=== PATIENT | female | born 1975 | race Caucasian/White ===

== ENCOUNTER 2021-12-19 07:43 | Emergency (ER) | payer BC, SELFPAY ==
[2021-12-19 07:45] VITALS: BP 143/98; PULSE 97; RESP 18; TEMP 36.1; O2SAT 100; BMI 31.1
--- NOTE | 2021-12-19 08:04 | ED.VIS.BACK ---
HPI History of Present Illness Chief Complaint: Back Informant: patient Onset/Context/Timing Onset: Month(s) Context: Gradual Onset Timing: Intermittent Quality: Aching Location: Lumbar Current Severity: Mild Maximum Severity: Moderate Worsened by: improves with Movement Relieved by: Remaining Still and Medications Associated Symptoms Associated Symptoms: Negative for Numbness, Tingling, Radiation to Right Leg, Radiation to Left Leg, Fever, Abdominal Pain, Dysuria, Unable to Ambulate, Unable to Transfer, Urinary Retention, Urinary Incontinence, Constipation and Fecal Incontinence Narrative Narrative: 38-year-old female states that her hysterectomy in July she has had intermittent low back pain. Has been seen for this at the [facility] had x-rays of her back which showed arthritis. She is never had back surgery. She denies any fall or trauma. No bowel or bladder incontinence or retention. No fever. Is worse with movement bending and lifting and better still. She is on tramadol at home and Flexeril as needed. States she was doing better there initially getting an MRI and it hold off on that because she was improving. The last several days she has had more back pain usually worse in the morning and improves throughout the day. Prior similar symptoms: Yes Recent Illness/Hospitalization: No PFSH PFSH Home Medications metaxalone [Skelaxin] 800 mg PO TID PRN #20 tab 12/19/21 [Rx Last Taken Unknown] Allergy/AdvReac Type Severity Reaction Status Date / Time lisinopril Allergy Other Verified 12/19/21 07:44 sulfamethoxazole AdvReac Rash Verified 12/19/21 07:44 [From Bactrim] trimethoprim [From Bactrim] AdvReac Rash Verified 12/19/21 07:44 ROS ROS ED ROS Narrative Back.. Otherwise negative. Review of Systems ROS Unobtainable: Denies due to encephalopathy Constitutional Constitutional ED: Denies fever(s) Eyes Eyes: Denies change in vision ENT ENT ED: Denies ear pain Cardiovascular Cardiovascular: Denies chest pain Respiratory/Chest Respiratory/Chest: Denies dyspnea Gastrointestinal Gastrointestinal: Denies abdominal pain Genitourinary Genitourinary ED: Denies dysuria Musculoskeletal Musculoskeletal: Reports back pain; Denies myalgias Integumentary Denies rash Neurologic Neurologic: Denies headache(s) Psychiatric Psychiatric: Denies depression Endocrine Endocrinology: Denies polyuria Hematologic/Lymphatic Hematologic/Lymphatic: Denies easy bruising Allergic/Immunologic Allergic/Immunologic ED: Denies urticaria EXAM Physical Exam Narrative Exam Narrative: 46-year-old female. No acute distress. Vital signs are stable afebrile. H EENT exam unremarkable. Neck nontender. Lungs clear to auscultation bilaterally. Heart regular rhythm no murmur. Abdomen soft nontender. Moving all 4 extremities. 5 out of 5 corrections officer strength. Dorsi plantarflexion intact. Normal sensation. No cauda equina. No saddle anesthesia. Normal medial thigh sensation. Negative straight leg test bilaterally. Back exam spines nontender. She has paralumbar soft tissue tenderness. There is no ecchymosis or bruising. No redness or warmth. Neurologic exam is normal with no focal motor or sensory deficits. Const Vital Signs: 12/19/21 07:45 Temperature 97.0 F L Temperature Source Temporal Pulse Rate 97 Respiratory Rate 18 Blood Pressure 143/98 H Blood Pressure Mean 113 Pulse Ox 100 Oxygen Delivery Method Room Air Positive well nourished, well developed and obese; Negative for cachectic, contractures or unkempt General Appearance ED: well developed and NAD; Negative for unkempt, cachectic, contractures or pallor Nutritional Appearance: obese; Negative for cachectic HEENT Reports moist mucous membranes Negative for trauma or tenderness Eyes PERRL and EOMs intact bilaterally Neck no lymphadenopathy, supple and no JVD General: Negative for tenderness Resp normal respiratory effort Effort and Inspection: Negative for other Auscultation: Negative for rales, rhonchi or wheezes Cardio regular rate, regular rhythm, S1 normal heart sound, S2 normal heart sound and no murmurs GI normal to inspection, nondistended, normoactive bowel sounds, soft to palpation, non-tender, non-distended and no masses Inspection: Negative for abdominal distention Auscultation: Negative for hyperactive bowel sounds Palpation: Negative for tender, guarding or rebound tenderness present Back/Spine normal to inspection and no thoracic nor lumbar tenderness General Back: Negative for CVA tenderness or scar(s) Cervical Spine: Negative for cervical spine tenderness and Negative for paracervical muscle tenderness Thoracic Spine / Upper Back: paraspinal muscle tenderness Lumbar Spine / Lower Back: straight leg raise negative bilaterally; Negative for straight leg raise positive right Extremity normal to inspection General Extremety ED: Yes tenderness; Negative for edema General Extremity: Negative for edema Neuro oriented x3 and no sensory deficits noted Sensorium / Orientation: alert; Negative for confused, lethargic or stuporous Motor Exam: strength 5/5 throughout Psych mental status grossly normal Appearance: Negative for unkempt Mood & Affect: Negative for depressed Skin no rashes or lesions noted and no wounds General Skin Exam: Negative for jaundice or pallor MDM MDM MDM Narrative Medical decision making narrative: 46-year-old female with musculoskeletal back pain very consistent with muscle stiffness and uptime spasm. There is probably also a component of arthritic back pain. It is worse in the morning and progressively improves throughout the day. At this time there is no signs of radiculopathy or any type of nerve impingement. There is no signs of any spinal cord compression. Definitely no cauda equina. She will be given IM injection of Toradol. I will write her prescription for Skelaxin. I explained to her that this did not require nor did I think is a good idea for narcotics. She does not need an emergent MRI or imaging at this time. Discharge Plan Triage Chief Complaint: Back ED Provider: Tim Green Dx/Rx/DC Orders Clinical Impression: Musculoskeletal back pain, History of arthritis Instructions: Relieving Back Pain, Back Exercises: Lower Back Stretch Prescriptions: New metaxalone [Skelaxin] 800 mg tablet 800 mg PO TID PRN (Reason: muscle pain) Qty: 20 RF: 0 Primary Care Provider: Annette Jean Referrals: Annette Jean PA [Primary Care Provider] - 1 Week if not improving Activity Restrictions/Additional Instructions: Your pain is consistent with musculoskeletal back pain. General warm bath to relax the muscles along with massage. Skelaxin is a good muscle relaxant. Motrin for pain and inflammation. Follow-up with your primary care provider if not improving. Disposition Disposition: Home, Self Care
[2021-12-19] MEDS: Ketorolac 60 MG/2 ML Vial IM (08:13)
[2021-12-19 08:29] VITALS: BP 108/69; PULSE 84; RESP 16; O2SAT 98
== END 2021-12-19 08:30 | disposition home or self-care (01) ==
LOC: ED 08:17
PROVIDERS: Emergency Provider Emergency Medicine; PCP Physician Assistant; Visit Provider Emergency Medicine
DX: M54.9 Dorsalgia, unspecified (principal); M46.90 Unspecified inflammatory spondylopathy, site unspecified; E66.9 Obesity, unspecified
CPT/HCPCS: 96372; 99282